=== PATIENT | female | born 1945 | race Caucasian/White ===

== ENCOUNTER 2020-12-07 06:25 | Inpatient (IN) | payer MEDICARE, OTHER ==
[~2020-12-07] VITALS: Ht 162.6 cm; Wt 64.9 kg
[~2020-12-07 06:25] MED LIST: ALBUTEROL2.5 MG/3 M INH; ALENDRONATE SOD70 MG PO; ANTACID LIQUID355 ML PO; ASPIR 8181 MG PO; AZTREONAM IV; BETHANECHOL CHL50 MG PO; BISACODYL10 MG PR; CARTIA XT240 MG PO; CLINDAMYCIN HC300 MG PO; CLOPIDOGREL75 MG PO; COUMADIN2.5 MG PO; COUMADIN5 MG PO; CRESTOR20 MG PO; DIGOXIN125 MCG PO; DOXYCYCLINE HY100 MG PO; FUROSEMIDE20 MG PO; HYDROCODON-ACE1 EAC2 PO; IMDUR ER TAB 6060 MG PO; LACTULOSE20 GM/30 M PO; LEVEMIR100 UNIT/1 SQ; LEVOCETIRIZINE D5 MG PO; LISINOPRIL5 MG PO; LYRICA150 MG PO; LYRICA50 MG PO; NABUMETONE500 MG PO; NEXIUM40 MG PO; NOVOLOG 10100 UNITS1 INJ; OMNICEF 300 MG300 MG PO; PREDNISONE20 MG PO; SENNA S TABLET1 EACH PO; SINGULAIR10 MG PO; SODIUM CHLORIDE3 ML INH; SYNTHROID150 MCG PO; TAMIFLU6 MG/1 ML PO; TRESIBA100 UNIT/1 SQ; TYLENOL 500 MG500 MG PO; VITAMIN B-12100 MCG PO; VITAMIN C500 M1 PO; VITAMIN D35000 UNI1 PO; ZADITOR5 ML EYEBOTH; ZOFRAN 4 MG TAB4 MG PO; ZYLOPRIM 300 M300 MG PO; [UNRECOGNIZED DRUG - OTHER] PO
[2020-12-07 07:52] LABS: HEMOGLOBIN 13.4 gm/dl (12.3-15.3); RED BLOOD COUNT 4.48 M/UL (4.00-5.10); WHITE BLOOD COUNT 6.9 K/UL (4.5-11.0)
[2020-12-07 08:08] LABS: BUN/CREATININE RATIO 22 (0-10)
[2020-12-07] MEDS ORDERED: FOSAMAX70 MG PO (16:55)
[2020-12-09 03:57] LABS: HEMOGLOBIN 11.5 gm/dl (12.3-15.3); WHITE BLOOD COUNT 8.3 K/UL (4.5-11.0)
[2020-12-09 04:01] LABS: RED BLOOD COUNT 3.83 M/UL (4.00-5.10)
[2020-12-09 04:28] LABS: BUN/CREATININE RATIO 18 (0-10)
[2020-12-10 03:35] LABS: HEMOGLOBIN 11.2 gm/dl (12.3-15.3); RED BLOOD COUNT 3.72 M/UL (4.00-5.10); WHITE BLOOD COUNT 8.1 K/UL (4.5-11.0)
[2020-12-10 03:51] LABS: BUN/CREATININE RATIO 18 (0-10)
[2020-12-11 03:00] LABS: HEMOGLOBIN 11.5 gm/dl (12.3-15.3); RED BLOOD COUNT 3.81 M/UL (4.00-5.10)
[2020-12-11 03:17] LABS: BUN/CREATININE RATIO 16 (0-10)
[2021-02-07] MEDS ORDERED: NOVOLOG 10100 UNITS/ INJ (08:17)
[2021-02-07] MEDS ORDERED: HYDROCODON-ACE1 EAC6 PO (08:23)
[2021-02-07] MEDS ORDERED: IPRAT-ALBUT 0.5-3 ML INH (08:24)
[2021-02-07] MEDS ORDERED: MIRTAZAPINE15 MG PO (08:25)
[2021-02-07] MEDS ORDERED: ACETAMINOPHEN500 MG PO (08:27)
[2021-02-07] MEDS ORDERED: GUIATUSS PO (08:28)
[2021-02-07] MEDS ORDERED: POLYETHYLENE GL17 GM PO (08:29)
[2021-02-07] MEDS ORDERED: VITAMIN C500 M4 PO (08:30)
[2021-02-07] MEDS ORDERED: ZINC OXIDE28 GM TP (08:31)
[2021-02-07] MEDS ORDERED: HYDROCODON-ACE1 EAC4 PO (13:26)
== END 2020-12-11 19:09 | DRG 512 ==
LOC: ER1 06:25 → CDU 10:17 → MED SURG 4 10:17
PROVIDERS: Emergency Medicine; Internal Medicine; Orthopaedic Surgery; ADMIT Internal Medicine
PROC: 0PHJ05Z Insertion of External Fixation Device into Left Radius, Open Approach (ICD-10-PCS; 2020-12-07)
PROC: 0PH Upper Bones, Insertion (ICD-10-PCS; principal; 2020-12-07 13:31)
DX: S52.602B Unspecified fracture of lower end of left ulna, initial encounter for open fracture type I or II (principal); S52.592B Other fractures of lower end of left radius, initial encounter for open fracture type I or II; W01.0XXA Fall on same level from slipping, tripping and stumbling without subsequent striking against object, initial encounter; M81.0 Age-related osteoporosis without current pathological fracture; I25.10 Atherosclerotic heart disease of native coronary artery without angina pectoris; Z20.822 Contact with and (suspected) exposure to COVID-19; Z95.1 Presence of aortocoronary bypass graft; E11.9 Type 2 diabetes mellitus without complications; I48.91 Unspecified atrial fibrillation; I73.9 Peripheral vascular disease, unspecified; Z28.21 Immunization not carried out because of patient refusal; Z91.81 History of falling; Y92.129 Unspecified place in nursing home as the place of occurrence of the external cause; E03.9 Hypothyroidism, unspecified
CPT/HCPCS: 36415; 70450; 72125; 73090; 73110; 76000; 80048; 80053; 81001; 82962; 85025; 85027; 87635; 90471; 90715; 93005; 96365; 96375; 96376; 99285; C1713; J2001; J2270; J2405; J2704; J3010; J7030; J7120; U0002

== ENCOUNTER → 2021-02-07 | Day surgery (SDC) | payer MEDICARE, OTHER ==
[~2021-02-07] MED LIST changes: +ACETAMINOPHEN500 MG PO; +FOSAMAX70 MG PO; +GUIATUSS PO; +HYDROCODON-ACE1 EAC4 PO; +HYDROCODON-ACE1 EAC6 PO; +IPRAT-ALBUT 0.5-3 ML INH; +MIRTAZAPINE15 MG PO; +NOVOLOG 10100 UNITS/ INJ; +POLYETHYLENE GL17 GM PO; +VITAMIN C500 M4 PO; +ZINC OXIDE28 GM TP
== END | disposition home or self-care (01) ==
LOC: OR 06:42
DX: S52.572D Other intraarticular fracture of lower end of left radius, subsequent encounter for closed fracture with routine healing (principal); S52.602D Unspecified fracture of lower end of left ulna, subsequent encounter for closed fracture with routine healing; J44.9 Chronic obstructive pulmonary disease, unspecified; I25.10 Atherosclerotic heart disease of native coronary artery without angina pectoris; I10 Essential (primary) hypertension; Z88.0 Allergy status to penicillin; Z79.01 Long term (current) use of anticoagulants; Z79.82 Long term (current) use of aspirin; Z79.02 Long term (current) use of antithrombotics/antiplatelets; Z79.899 Other long term (current) drug therapy; X58.XXXD Exposure to other specified factors, subsequent encounter
CPT/HCPCS: 73100; 76000; J1100; J2001; J2370; J2405; J2704; J3010; J7030; J7120

== ENCOUNTER 2022-03-31 11:00 | Inpatient (IN) | payer MEDICARE, OTHER ==
[~2022-03-31] VITALS: Ht 162.6 cm; Wt 61.2 kg
[2022-03-31 11:39] LABS: HEMOGLOBIN 14.8 gm/dl (12.3-15.3); RED BLOOD COUNT 4.89 M/UL (4.00-5.10)
[2022-03-31 12:10] LABS: BUN/CREATININE RATIO 19 (0-10)
[2022-03-31] MEDS ORDERED: CHLORASEPTIC20 ML MT (18:21)
[2022-03-31] MEDS ORDERED: DOCUSATE SODIU100 M1 PO (18:23)
[2022-03-31] MEDS ORDERED: OMEGA-31000 MG PO (18:24)
[2022-03-31] MEDS ORDERED: GUAIFENESI100 MG/5 M PO (18:25)
[2022-03-31] MEDS ORDERED: PROTONIX40 MG PO (18:26)
[2022-03-31] MEDS ORDERED: METFORMIN HCL500 MG PO (18:26)
[2022-03-31] MEDS ORDERED: TRESIBA FL100 UNIT/1 SQ (18:27)
[2022-03-31] MEDS ORDERED: VENLAFAXINE HC150 M1 PO (18:28)
[2022-04-01 01:26] LABS: HEMOGLOBIN 15.8 gm/dl (12.3-15.3); RED BLOOD COUNT 5.28 M/UL (4.00-5.10); WHITE BLOOD COUNT 27.5 K/UL (4.5-11.0)
[2022-04-01 01:55] LABS: BUN/CREATININE RATIO 21 (0-10)
[2022-04-01 12:53] LABS: WHITE BLOOD COUNT 20.8 K/UL (4.5-11.0)
[2022-04-01 12:54] LABS: HEMOGLOBIN 13.3 gm/dl (12.3-15.3); RED BLOOD COUNT 4.47 M/UL (4.00-5.10)
[2022-04-02 06:17] LABS: RED BLOOD COUNT 4.05 M/UL (4.00-5.10); WHITE BLOOD COUNT 18.9 K/UL (4.5-11.0)
[2022-04-03 03:57] LABS: HEMOGLOBIN 11.3 gm/dl (12.3-15.3); RED BLOOD COUNT 3.83 M/UL (4.00-5.10)
[2022-04-03 03:59] LABS: WHITE BLOOD COUNT 13.8 K/UL (4.5-11.0)
[2022-04-04 05:20] LABS: RED BLOOD COUNT 3.98 M/UL (4.00-5.10); WHITE BLOOD COUNT 12.3 K/UL (4.5-11.0)
[2022-04-04] MEDS ORDERED: K-TAB ER20 MEQ PO (11:10)
[2022-04-04] MEDS ORDERED: MACROBID 100 M100 M1 PO (11:10)
== END 2022-04-04 17:21 | DRG 871 ==
LOC: ER1 11:00 → CDU 14:35 → CCU 14:35
PROVIDERS: Emergency Medicine; ADMIT Family Medicine
PROC: 3E03329 Introduction of Other Anti-infective into Peripheral Vein, Percutaneous Approach (ICD-10-PCS; principal; 2022-03-31)
PROC: 3E033XZ Introduction of Vasopressor into Peripheral Vein, Percutaneous Approach (ICD-10-PCS; 2022-03-31)
PROC: B24BZZZ Ultrasonography of Heart with Aorta (ICD-10-PCS; 2022-04-01)
DX: A41.9 Sepsis, unspecified organism (principal); R65.21 Severe sepsis with septic shock; N39.0 Urinary tract infection, site not specified; E87.2 Acidosis; I48.20 Chronic atrial fibrillation, unspecified; N17.9 Acute kidney failure, unspecified; I25.10 Atherosclerotic heart disease of native coronary artery without angina pectoris; F41.8 Other specified anxiety disorders; F32.A Depression, unspecified; J44.9 Chronic obstructive pulmonary disease, unspecified; M81.0 Age-related osteoporosis without current pathological fracture; K21.9 Gastro-esophageal reflux disease without esophagitis; E03.9 Hypothyroidism, unspecified; E78.5 Hyperlipidemia, unspecified; E11.40 Type 2 diabetes mellitus with diabetic neuropathy, unspecified; E11.22 Type 2 diabetes mellitus with diabetic chronic kidney disease; N18.30 Chronic kidney disease, stage 3 unspecified; E11.51 Type 2 diabetes mellitus with diabetic peripheral angiopathy without gangrene; E87.6 Hypokalemia; F41.9 Anxiety disorder, unspecified; B96.20 Unspecified Escherichia coli [E. coli] as the cause of diseases classified elsewhere; N31.9 Neuromuscular dysfunction of bladder, unspecified; I73.9 Peripheral vascular disease, unspecified; F01.50 Vascular dementia, unspecified severity, without behavioral disturbance, psychotic disturbance, mood disturbance, and anxiety; Z98.890 Other specified postprocedural states; Z86.73 Personal history of transient ischemic attack (TIA), and cerebral infarction without residual deficits; Z79.899 Other long term (current) drug therapy; Z79.4 Long term (current) use of insulin; Z95.1 Presence of aortocoronary bypass graft; Z80.8 Family history of malignant neoplasm of other organs or systems; Z90.49 Acquired absence of other specified parts of digestive tract; Z88.0 Allergy status to penicillin; Z83.6 Family history of other diseases of the respiratory system; Z79.84 Long term (current) use of oral hypoglycemic drugs; Z82.49 Family history of ischemic heart disease and other diseases of the circulatory system; Z79.82 Long term (current) use of aspirin; Z87.440 Personal history of urinary (tract) infections
CPT/HCPCS: ECHO; 36415; 71045; 80048; 80053; 81001; 82040; 82550; 82553; 82962; 83605; 83735; 83880; 84132; 84484; 85025; 85027; 87040; 87077; 87086; 87186; 93005; 93306; 94760; 96374; 96375; 99285; J0610; J0696; J1650; J2405; J3370; J3480; J7030; U0002